=== PATIENT | female | born 1960 | race Two or more races ===

== ENCOUNTER 2024-07-29 11:11 | Outpatient (AMB) | payer OTHER, SELFPAY ==
[2024-07-29 11:34] VITALS: BP 144/60; PULSE 90; RESP 18; TEMP 36.4; O2SAT 97; BMI 30.7
--- NOTE | 2024-07-29 11:34 | PD.ORTHCLVIS ---
Vital signs 07/29/24 11:34 Height 1.55 m Height Method Stated Weight 73.709 kg Weight Measurement Method Standing Scale BMI 30.7 BP 144/60 H Blood Pressure Source Automatic Cuff Blood Pressure Location Left Upper Arm Position Sitting Respiration 18 Pulse 90 Pulse Source Monitor Temp 97.5 F Temp Source Temporal Artery Scan Pulse Oximetry (%) 97 Oxygen Delivery Method Room Air Med/Allergies Allergies & Medications Allergies No Known Drug Allergies Allergy (Verified 07/29/24 11:35) Medication Reconciliation meloxicam 7.5 mg tablet 7.5 mg PO QDAY #45 tabs 09/07/23 [Rx Confirmed 07/29/24] Exam Exam Patient is in no acute distress. Right knee incision is clean dry and intact. Range of motion 0 to 110 degrees Knee feels stable to varus valgus stress as well as AP translation Positive DP PT pulse Right knee range of motion is 0 to 105 degrees. Incisions clean dry and intact Xrays demonstrate a cemented total knee replacement in good alignment position. There are augments present Assessment and Plan Problem List (1) S/P total knee arthroplasty: Status: Acute Plan: Patient is doing well status post right total knee replacement. She is 1 year out and is doing well. She has minimal pain (2) Pain in right knee: Status: Acute Advanced Care Planning Discussion Advance care planning discussed with:: patient Office Procedures GNS Level of Care Nursing/Assessment Patient Status: Established Patient Nursing Assessment/Reassesment: Medication Reconciliation, Update PMH in EMR and Vital Signs Coordination of Care: Complex Care and Chronic Disease 1-5, Education Complex Pt/Fam, Consent,records obtained, informed consent, Results/Orders obtained and Staff clarify orders Established Patient Charge Established Patient Point Assignment: 95 Established Patient Point Charge: EP Level 3 (80-115) MA Intake Visit Data Collection New Patient or Established: Established Patient (seen at [facility] within 3 years) Reason for Visit:: F/U Seen by Clinical Staff ONLY (RN/MA): No Podiatric Technician Required: No PCP or OBGYN visit in last 3 months: Yes Hx Now: No Do You Feel Safe at Home: Yes Authorities Contacted: N/A Questionairres Past Medical History Past Medical History Have you ever been diagnosed with any of the following: Subjective Visit Visit for: follow up visit and knee Immunization / Flu Flu Vaccine in the Last 12 Months: No Flu Vaccine Exclusion Criteria: No Exclusion Criteria History of Present Illness Chief complaint: Right knee replacement Rosangela alfred 64-year-old female status post right total knee replacement. She has minimal pain. She is very happy with her progress. Pain Pain level (0-10): 0 Associated signs & symptoms: none Ambulatory data Ambulatory device: none Treatments Improvement with previous injections: No Improvement with PT: No Improvement with NSAIDS: no Review of Systems Review of Systems: All systems negative unless otherwise noted in HPI.
== END 2024-07-29 11:39 | disposition home or self-care (01) ==
LOC: HODSRG 11:11
PROVIDERS: Supervising Provider Orthopaedic Surgery Adult Reconstructive Orthopaedic Surgery; Visit Provider Orthopaedic Surgery Adult Reconstructive Orthopaedic Surgery
DX: Z96.651 Presence of right artificial knee joint (principal); M25.561 Pain in right knee
CPT/HCPCS: 99213; G0463